=== PATIENT | female | born 1955 | race American Indian/Alaskan Native ===

== ENCOUNTER 2020-01-09 11:32 | Emergency (ER) | payer SELFPAY ==
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
[2020-01-09 14:51] VITALS: BP 115/75
== END 2020-01-09 15:17 | disposition home or self-care (01) ==
LOC: ED 11:32
DX: S16.1XXA Strain of muscle, fascia and tendon at neck level, initial encounter (principal); I10 Essential (primary) hypertension; E11.9 Type 2 diabetes mellitus without complications; Z79.899 Other long term (current) drug therapy; Z88.2 Allergy status to sulfonamides; V89.2XXA Person injured in unspecified motor-vehicle accident, traffic, initial encounter; Y93.89 Activity, other specified; Y92.89 Other specified places as the place of occurrence of the external cause; Y99.8 Other external cause status
CPT/HCPCS: 72040; 99283

== ENCOUNTER 2020-03-23 12:19 | Emergency (ER) | payer SELFPAY ==
[2020-03-23 12:38] VITALS: BP 102/63
--- NOTE | 2020-03-23 12:47 | Emergency Department Report ---
ED General Adult HPI - General Chief complaint: Urogenital-Female Stated complaint: POSS BLADDER INFECTION Time Seen by Provider: 03/23/20 12:39 Source: patient Mode of arrival: Ambulatory Limitations: No Limitations - History of Present Illness Initial comments: 54-year-old -[place] female patient with history of diabetes presents with complaints of urinary frequency and urgency x yesterday. She states she is also having some mild bilateral lower back pain. She denies any dysuria/hematuria, vaginal discharge, fever/chills/sweats, or abdominal pain. She does state she has some lower pelvic pressure. She rates her discomfort as a 4/10 in severity. - Related Data Allergies Allergy/AdvReac Type Severity Reaction Status Date / Time Sulfa (Sulfonamide Allergy Unknown Verified 01/09/20 11:48 Antibiotics) ED Review of Systems ROS: Stated complaint: POSS BLADDER INFECTION Other details as noted in HPI Constitutional: denies: chills, diaphoresis, fever, malaise, weakness Respiratory: denies: shortness of breath Cardiovascular: denies: chest pain Gastrointestinal: denies: abdominal pain, nausea, vomiting Genitourinary: urgency, frequency. denies: dysuria, hematuria, discharge Skin: denies: lesions, change in color Neurological: denies: headache Hematological/Lymphatic: denies: swollen glands ED Past Medical Hx - Past Medical History Previous Medical History?: Yes Hx Hypertension: Yes Hx Diabetes: Yes - Social History Smoking Status: Never Smoker ED Physical Exam - General Limitations: No Limitations General appearance: alert, in no apparent distress - Head Head exam: Present: atraumatic, normocephalic - Eye Eye exam: Present: normal appearance. Absent: scleral icterus - Respiratory Respiratory exam: Absent: respiratory distress - Cardiovascular Cardiovascular Exam: Present: regular rate - GI/Abdominal GI/Abdominal exam: Present: soft, normal bowel sounds. Absent: distended, tenderness, guarding, rebound, rigid - Extremities Exam Extremities exam: Present: full ROM - Back Exam Back exam: Present: full ROM. Absent: CVA tenderness (R), CVA tenderness (L), paraspinal tenderness, vertebral tenderness - Neurological Exam Neurological exam: Present: alert, oriented X3 - Psychiatric Psychiatric exam: Present: normal affect, normal mood - Skin Skin exam: Present: warm, dry, intact, normal color. Absent: rash ED Course Vital Signs 03/23/20 12:36 Temperature 98.1 F Pulse Rate 66 Respiratory 16 Rate Blood Pressure 102/63 O2 Sat by Pulse 99 Oximetry ED Medical Decision Making - Medical Decision Making 54-year-old -[place] female patient with history of diabetes presents with complaints of urinary frequency and urgency x yesterday. She states she is also having some mild bilateral lower back pain. She denies any dysuria/hematuria, vaginal discharge, fever/chills/sweats, or abdominal pain. She does state she has some lower pelvic pressure. She rates her discomfort as a 4/10 in severity. UA is negative for UTI. Glucose >500 and urine, patient is on a SGLT2 inhibitor for her diabetes. POC glucose is 86. Upon further questioning, patient states she started exercising 2 days ago and has been doing crunches and ab workouts. Symptoms could be due to muscle strain. She also admits to high water intake recently. Which recommend OTC ibuprofen as needed pain. Discussed in great detail signs and symptoms that should prompt immediate return to the emergency department in detail with patient who verbalized understanding. She is well-appearing and stable for discharge home. Patient to follow-up with her primary care doctor in 3 to 5 days. Critical care attestation.: If time is entered above; I have spent that time in minutes in the direct care of this critically ill patient, excluding procedure time. ED Disposition Clinical Impression: Abdominal pain, lower, Abdominal muscle strain Disposition: DC-01 TO HOME OR SELFCARE Is pt being admited?: No Condition: Stable Instructions: Muscle Strain Referrals: [facility] [Provider Group] - 3-5 Days
[2020-03-23 14:51] LABS: Bilirubin,Urine NEG (Negative); Blood,Urine SM (Negative); Color,Urine Yellow (Yellow); Mucus,Urine FEW /HPF; Protein,Urine <15 mg/dL mg/dL (Negative); Urobilinogen,Urine < 2.0 mg/dL (<2.0)
== END 2020-03-23 15:20 | disposition home or self-care (01) ==
LOC: ED 12:19
DX: S39.011A Strain of muscle, fascia and tendon of abdomen, initial encounter (principal); R10.30 Lower abdominal pain, unspecified; I10 Essential (primary) hypertension; E11.9 Type 2 diabetes mellitus without complications; Z88.2 Allergy status to sulfonamides; X58.XXXA Exposure to other specified factors, initial encounter; Y93.89 Activity, other specified; Y92.89 Other specified places as the place of occurrence of the external cause; Y99.8 Other external cause status
CPT/HCPCS: 81001; 82962